=== PATIENT | male | born 1955 | race Caucasian/White ===

== ENCOUNTER → 2023-07-29 07:05 | Outpatient (REF) | payer MEDICARE, OTHER, SELFPAY | LOC: HWRCS 07:05 | PROVIDERS: ATTENDING PHYSICIAN Internal Medicine Cardiovascular Disease; FAMILY PHYSICIAN Family Medicine | DX: E78.2 Mixed hyperlipidemia (principal); I10 Essential (primary) hypertension; I35.0 Nonrheumatic aortic (valve) stenosis | CPT/HCPCS: 93306 ==

== ENCOUNTER 2023-12-05 08:26 | Day surgery (SDC) | payer MEDICARE, OTHER, SELFPAY ==
[2023-12-05] VITALS (22 sets, daily range): BP systolic 137–175; BP diastolic 72–145; BMI 38.2
[2023-12-05] MEDS: LOW STRENGTH ASPIRIN 81 MG PO (09:01)
[2023-12-05] MEDS: NSS 383 ML IV (09:09)
[2023-12-05 11:36] LABS: ACT-LR - POC 240 Seconds (116-155)
[2023-12-05 12:45] LABS: ACT-LR - POC > 397 Seconds (116-155)
[2023-12-05 12:45] LABS: ACT-LR - POC > 397 Seconds (116-155)
--- NOTE | 2023-12-05 13:12 | ITS.CL.CATH ---
Manager Of Production - Catheterization
Cardiac Catheterization
Procedure Report:
CARDIAC CATHETERIZATION REPORT
Date of Procedure: 12/05/2023
Referring: Ivan Babin MD
Indication: Recent onset angina
�
HEMODYNAMIC DATA
AO: 124/68
LV: 138/18
There is a mean gradient of 18 mmHg across the aortic valve
�
LEFT VENTRICULOGRAPHY: Normal left ventricular wall motion with EF 65%
�
CORONARY ANGIOGRAPHY
Dominance: Right
Left Main: Very mild distal tapering
LAD: Mild to moderate calcification with 20% proximal LAD stenosis and otherwise trivial luminal irregularities
Circumflex: 30% proximal circumflex stenosis with otherwise mild luminal irregularities
RCA: Large dominant vessel with tandem 80% and 90% proximal stenoses. The RCA gives rise to a large PDA and terminates with a very large posterolateral system
Angioplasty: At the conclusion the diagnostic study we proceeded with RCA intervention. Heparin was used for anticoagulation. Plavix 600 mg was administered to the procedure conclusion. A JR4 guide catheter was used-ultimately it provided poor to
abysmal backup support. A BMW wire was advanced through the 2 lesions but could not be advanced into the distal RCA and was left with the tip in the mid RCA near the crux. A 3.0 x 12 Euphora balloon was advanced into the RCA but would not cross
the diseased segment. The balloon was removed and replaced with a 1.5 x 12 Medtronic Euphora balloon which was advanced into the RCA but could only be advanced into the more proximal lesion. We inflated to 15 lydia. We then attempted to p passed
the 3.0 x 12 balloon unsuccessfully. At this point, a second BMW wire was advanced and this wire was able to be passed easily into the distal right posterolateral branch improving backup support. A 2.0 x 12 Euphora balloon was then advanced across
both lesions and inflated to 14 lydia. We then attempted to advance a 4.0 x 15 Marcelo frontier BYRON across both lesions. Despite the use of the kandice wire we were not able to get the stent comfortably across the distal lesion. Further angioplasty was
then performed with a 3.0 x 12 NC trek to 14 lydia. Another attempt was made unsuccessfully to get the stent across both lesions. A 3.25 NC Euphora was then inflated to 12 lydia across both lesions with the kandice wire in place. We then attempted to
pass the stent and this was unsuccessful. At this point we removed the kandice wire and used a 6 [place] guide liner. With persistent effort and some extremely good fortune we were finally able to get the stent to the target location where it was
deployed at 15 lydia. Postdilatation was accomplished with a 4.0 NC Euphora to 17 lydia. There appeared to be a very mild amount of residual stenosis and we really dilated with the same balloon to 21 lydia. At this point, I was not completely satisfied
with the proximal edge of the stent entirely covering the diseased segment even though the high-grade part of the lesion was clearly covered. Accordingly, a 4.0 x 8 Marcelo BYRON was placed in a proximally overlapping fashion with deployment pressure of
15 lydia followed by postdilatation with a 4.0 NC Euphora to 18 lydia. The final angiographic result was outstanding with no residual stenosis. There were no procedural complications. This was a complex procedure requiring numerous wires and balloons
and catheter exchanges.
�
Closure Device: None-the procedure was performed via the right radial artery. The Moi's test was normal prior to the procedure
�
Radiation (mGy): 1837
DAP (cm2.Gy): 129
Fluoroscopy time: 24.9
�
CONCLUSIONS
1:�Moderate aortic stenosis with mean gradient 18 mmHg-continue serial clinical and echocardiographic follow-up for progression
2:�Normal left ventricular function with EF 65%
3. Single-vessel CAD with tandem high-grade proximal RCA lesions successfully stented with overlapping 4.0 x 15 and 4.0 x 8 Alderson BRYON with outstanding final angiographic result
4. Recommend dual antiplatelet therapy for 12 months then indefinite aspirin therapy
5. Continue risk factor modification efforts
�
�
Copy to: Ivan Babin MD, Chad Smith, DO
�
Lito Gonzalez MD, [facility], [facility]
[2023-12-05] MEDS: NSS 1000 IV (13:24)
[2023-12-05] MEDS: TYLENOL 650 MG PO (14:14)
[2023-12-05] MEDS: NSS 573 IV (14:15)
[2023-12-05 14:19] LABS: ACT-LR - POC > 397 Seconds (116-155)
--- NOTE | 2023-12-05 15:28 | W.PN.UPDATE ---
Update Note
Progress Note Update
Pt seen post RCA PCI w/2 overlapping BYRON. Right radial cath site without ht/bleeding, non tender. OOB ambulating. Post EKG SB 50s, no acute changes. Pt understands importance of uninterrupted DAPT w/asa, plavix. New start atorvastatin 40mg/daily.
Cardiac rehab consulted. Followup with Dr. Babin as scheduled. Home later today if cath site/tele stable.
== END 2023-12-05 17:30 | disposition home or self-care (01) ==
LOC: CATH 08:26
PROVIDERS: ATTENDING PHYSICIAN Internal Medicine Cardiovascular Disease; FAMILY PHYSICIAN Family Medicine; OTHER PHYSICIAN Internal Medicine Cardiovascular Disease
DX: I25.119 Atherosclerotic heart disease of native coronary artery with unspecified angina pectoris (principal); I25.84 Coronary atherosclerosis due to calcified coronary lesion; I35.0 Nonrheumatic aortic (valve) stenosis; Z79.82 Long term (current) use of aspirin; Z79.02 Long term (current) use of antithrombotics/antiplatelets; Z79.899 Other long term (current) drug therapy
CPT/HCPCS: 85347; 93005; 93458; C1725; C1769; C1874; C1894; C9600; Q9967

== ENCOUNTER 2024-02-11 08:39 | Outpatient (RCR) | payer MEDICARE, OTHER, SELFPAY | END 2024-02-11 23:59 | disposition home or self-care (01) | LOC: CRHB 08:39 | PROVIDERS: ATTENDING PHYSICIAN Internal Medicine Cardiovascular Disease | DX: I25.2 Old myocardial infarction (principal); Z95.5 Presence of coronary angioplasty implant and graft | CPT/HCPCS: G0422; G0423 ==

== ENCOUNTER 2024-03-15 08:44 | Outpatient (RCR) | payer MEDICARE, OTHER, SELFPAY | END 2024-03-15 23:59 | disposition home or self-care (01) | LOC: CRHB 08:44 | PROVIDERS: ATTENDING PHYSICIAN Internal Medicine Cardiovascular Disease; FAMILY PHYSICIAN Family Medicine | DX: I25.2 Old myocardial infarction (principal); I25.10 Atherosclerotic heart disease of native coronary artery without angina pectoris (principal); Z95.5 Presence of coronary angioplasty implant and graft | CPT/HCPCS: G0422 ==

== ENCOUNTER 2024-04-16 08:43 | Outpatient (RCR) | payer MEDICARE, OTHER, SELFPAY | END 2024-04-16 23:59 | disposition home or self-care (01) | LOC: CRHB 08:43 | PROVIDERS: ATTENDING PHYSICIAN Internal Medicine Cardiovascular Disease; FAMILY PHYSICIAN Family Medicine | DX: I25.2 Old myocardial infarction (principal); Z95.5 Presence of coronary angioplasty implant and graft; I25.10 Atherosclerotic heart disease of native coronary artery without angina pectoris | CPT/HCPCS: G0422; G0423 ==

== ENCOUNTER 2024-04-19 07:12 | Outpatient (RCR) | payer MEDICARE, OTHER, SELFPAY | END 2024-04-19 23:59 | disposition home or self-care (01) | LOC: CRHB 07:12 | PROVIDERS: ATTENDING PHYSICIAN Internal Medicine Cardiovascular Disease; FAMILY PHYSICIAN Family Medicine | DX: I25.2 Old myocardial infarction (principal); Z95.5 Presence of coronary angioplasty implant and graft; I21.01 ST elevation (STEMI) myocardial infarction involving left main coronary artery | CPT/HCPCS: G0422; G0423 ==

== ENCOUNTER 2025-01-09 09:55 | Emergency (ER) | payer MEDICARE, OTHER, SELFPAY ==
[2025-01-09 10:07] VITALS: BP 157/86
--- NOTE | 2025-01-09 13:19 | ED.GENMED ---
History of Present Illness
General
Chief Complaint: Musculo-Skeletal Complaint
Source: patient
Time Seen by Provider: 01/09/25 12:38
History of Present Illness
History of Present Illness:
69-year-old male presenting to the ER for evaluation of acute on chronic left knee pain noting that he has significant arthritis to both knees and has had beginning stages of discussions about total knee replacement on both knees, had a steroid
injection into the left knee on October 18, over the last few weeks has had increasing pain to the left knee accompanied with edema. Patient has a new office visit scheduled on January 29 for a new cortisone injection however the office was unable
to get him a sooner appointment due to it being too soon to get another steroid injection. Patient states that the swelling has gone down slightly over the last few days but the pain persists. He has attempted both NSAIDs and Tylenol as well as
Tylenol with codeine with minimal relief. He denies any fevers and no trauma. No other concerns.
Past History
Past History
ED Past Medical History: HTN, Hypercholesterolemia and Other (OA)
ED Past Surgical History: Orthopedic (R shoulder repl)
Social History
Tobacco: Non-smoker
Alcohol: None
Drug: None
Personal:
Living: with family
Review of Systems
Review of Systems
All Other Systems: ROS reviewed and negative except as documented in HPI and ROS
Phy Exam
Physical Exam
Physical Exam:
GENERAL: Alert , in no apparent distress
EYE: conjunctiva clear
Head: Normocephalic atraumatic
NECK: Supple,
ENT: mmm.
LUNGS: no acute respiratory distress
NEUROLOGICAL: Alert and oriented
SKIN: Warm and dry, skin intact.
MUSCULOSKELETAL: Left Knee: mild soft tissue edema, no joint effusion. Ambulatory but with slight limp on the left. No overlying erythema. no calf edema/pain
PSYCH: Normal and appropriate interaction.
Scores
Heart Failure Risk
Heart Failure Risk Score: Not Applicable
Heart Score for Chest Pain Patients
STEMI patient?: Not applicable
Withdrawal Assessment of Alcohol
Withdrawal Assessment Completed?: Not applicable
Course
Vital Signs
Initial and Last Documented VS:
Initial Vital Signs
Temp Pulse Resp BP Pulse Ox
98.6 F 84 16 157/86 97
01/09/25 10:07 01/09/25 10:07 01/09/25 10:07 01/09/25 10:07 01/09/25 10:07
Last Documented Vital Signs
Temp Pulse Resp BP Pulse Ox
98.6 F 84 16 157/86 97
01/09/25 10:07 01/09/25 10:07 01/09/25 10:07 01/09/25 10:07 01/09/25 13:20
MDM/Problems Addressed
Differential Diagnosis Includes:
Osteoarthritis
Joint effusion
I do not suspect septic joint
Meniscal injury
Ligamentous injury
No concern for DVT
MDM/Problems Addressed:
69-year-old male presenting for evaluation of acute on chronic left knee pain. No direct injuries. Patient has been told by orthopedist he will likely need a total knee replacement on both knees at some point in the near future. Offered further
pain control however patient declines. Discussed potential need for advanced imaging however would not be able to obtain this today, this would be an outpatient test. Encourage patient to call his orthopedic doctor tomorrow for follow-up visit to
see if they can get him in sooner. Stable for home.
*Pulse Oximetry
SaO2: 97
Oxygen Mode of Delivery: Room air
Patient hypoxic: no
*Critical Care Note
Total Time (30-74mins, 75-104mins- exclusive of procedures): Not Applicable
ED Attending Note
-
Portions of this chart may have been created with voice recognition software.� Occasional wrong word or��sound alike� substitutions may have occurred due to the inherent limitations of voice recognition software.
Discharge Plan
Departure
Patient Disposition: Home (Routine Discharge)
Date of Disposition: 01/09/25
Time of Disposition: 13:19
Patient with high blood pressure during this ER visit?: Yes
Discharge Problem:
Knee pain, left
Instructions: Knee Pain (DC)
Prescriptions:
No Action
aspirin [[place] Low Dose Aspirin] 81 MG tablet,delayed release (DR/EC)
81 mg PO QPM
acetaminophen [Tylenol Extra Strength] 500 MG tablet
1,000 mg PO Q6HPRN PRN (Reason: pain)
vitamins A and D 1 EACH capsule
1 ea PO DAILY
losartan [Cozaar] 100 MG tablet
100 mg PO QPM
metoprolol succinate 50 mg Tablet Extended Release 24 Hr
50 mg PO DAILY
tm-dxa-BP-Ic-Pc-nsvzezo-lutein 0.4-162-18 mg Tablet
1 tab PO DAILY
omega 9-crz-hrf-fish oil [Fish Oil] 1,200 (144-216) mg Capsule
1 cap PO DAILY
atorvastatin 40 mg tablet
40 mg PO DAILY Qty: 90 3RF
clopidogrel 75 mg tablet
75 mg PO DAILY Qty: 90 3RF
nitroglycerin 0.4 mg tablet, sublingual
0.4 mg sublingual [id number] PRN (Reason: chest pain) Qty: 25 2RF
Referrals:
Chad Smith DO [Family Provider, Family Practice]
Interventions
Interventions:
*Risk Screen - Suicide Last Done: 01/09/25 13:35
*General Assessment Last Done: 01/09/25 13:35
*Neglect/Abuse Screening Last Done: 01/09/25 13:35
*ED- Fall Risk Assessment Last Done: 01/09/25 13:35
*ED COVID-19 Vaccine History Last Done: 01/09/25 13:35
*ED Influenza Vaccine History Last Done: 01/09/25 13:35
ED-Musculoskeletal Assessment Last Done: 01/09/25 13:35
Discharge Date and Time
Print Language: SWEDISH
[2025-01-09 13:37] VITALS: BP 145/70
== END 2025-01-09 13:37 | disposition home or self-care (01) ==
LOC: EMR 09:55
PROVIDERS: EMERGENCY PHYSICIAN Emergency Medicine; FAMILY PHYSICIAN Family Medicine
DX: M25.562 Pain in left knee (principal); R03.0 Elevated blood-pressure reading, without diagnosis of hypertension; M17.0 Bilateral primary osteoarthritis of knee; I10 Essential (primary) hypertension; E78.00 Pure hypercholesterolemia, unspecified; Z79.82 Long term (current) use of aspirin; Z79.02 Long term (current) use of antithrombotics/antiplatelets
CPT/HCPCS: 99282

== ENCOUNTER → 2025-01-11 06:48 | Outpatient (REF) | payer MEDICARE, OTHER, SELFPAY | LOC: PAVMRI 06:48 | PROVIDERS: ATTENDING PHYSICIAN Family Medicine | DX: M25.562 Pain in left knee (principal) | CPT/HCPCS: 73721 ==

== ENCOUNTER → 2025-01-21 12:34 | Outpatient (REF) | payer MEDICARE, OTHER, SELFPAY | LOC: HWRCS 12:34 | PROVIDERS: ATTENDING PHYSICIAN Internal Medicine Cardiovascular Disease; FAMILY PHYSICIAN Family Medicine | DX: I25.10 Atherosclerotic heart disease of native coronary artery without angina pectoris (principal); Z95.5 Presence of coronary angioplasty implant and graft; I35.0 Nonrheumatic aortic (valve) stenosis; I10 Essential (primary) hypertension; E78.2 Mixed hyperlipidemia | CPT/HCPCS: 93306 ==